=== PATIENT | female | born 1960 | race Caucasian/White ===

== ENCOUNTER 2024-01-18 17:06 | Emergency (ER) | payer MEDICARE, OTHER ==
[~2024-01-18] VITALS: Ht 162.6 cm; Wt 69.6 kg
[2024-01-18 18:19] VITALS: BP 165/72; PULSE 72; RESP 15; TEMP 98; O2SAT 95
== END 2024-01-18 18:22 | disposition home or self-care (01) ==
LOC: ER 17:07
DX: M25.562 Pain in left knee (principal); R25.2 Cramp and spasm
CPT/HCPCS: 93971; 99284

== ENCOUNTER 2025-01-26 13:37 | Outpatient (CLI) | payer BC, MEDICARE, MEDICAID ==
--- NOTE | 2025-01-26 14:58 | RADIOLOGY REPORT ---
ULTRASOUND SOFT TISSUE HEAD AND NECK CLINICAL INDICATION: HYPOTHYROIDISM, UNSPECIFIED TECHNIQUE: Multiple real time sonographic images of the thyroid were obtained. FINDINGS: The right thyroid gland measures 2 x 1 x 0.8 cm. The left thyroid gland measures approximately 2 x 1 x 1 cm. The isthmus measures -/2 cm. ACR TIRADS 9 mm TI-RADS 3 nodule right lower thyroid lobe. IMPRESSION: 1. 9 mm TI-RADS 3 nodule right lower thyroid lobe. Follow-up in 1 year [employer] TI-RADS Categories and Recommendations (2017): TR1: 0 points, Benign, No FNA TR2: 2 points, Not suspicious, No FNA TR3: 3 points, Mildly suspicious, FNA if > or = 2.5 cm, Follow if > or = 1.5 cm TR4: 4-6 points, Moderately Suspicious, FNA if > or = 1.5 cm, Follow if > or = 1.0 cm TR5: 7+ points, Highly Suspicious, FNA if > or = 1.0 cm, Follow if > or = 0.5 cm Follow-up ultrasound guidelines: TR5: yearly for 5 years, if no growth or change in TI-RADS level TR4: at 1, 2, 3 and 5 years, if no growth or change in TI-RADS level TR3: at 1, 3 and 5 years, if no growth or change in TI-RADS level If increased but below threshold for FNA, repeat in one year. Source: ACR Thyroid Imaging, Reporting and Data System (TI-RADS): White Paper of the ACR TI-RADS Committee. Laurent et al., J Am Jigna Radiol 2017;14:587-595.
== END 2025-01-26 23:59 | disposition home or self-care (01) ==
LOC: RAD 13:37
PROVIDERS: ATTEND Physician Assistant
DX: E04.1 Nontoxic single thyroid nodule (principal); E03.9 Hypothyroidism, unspecified
CPT/HCPCS: 76536

== ENCOUNTER 2025-05-05 10:10 | Outpatient (CLI) | payer BC, MEDICARE, MEDICAID ==
--- NOTE | 2025-05-05 13:08 | RADIOLOGY REPORT ---
CLINICAL INDICATION: LEFT HIP PAIN TECHNIQUE: 1 radiographic views of the pelvis and 1 view of the bilateral hips were obtained. Comparison: None FINDINGS/IMPRESSION: There is no evidence of acute fracture or dislocation. The visualized joint space is well maintained. Degenerative changes of the pubic symphysis. The alignment is anatomical. There is no radiopaque foreign body.
== END 2025-05-05 23:59 | disposition home or self-care (01) ==
LOC: RAD 10:10
PROVIDERS: ATTEND Physician Assistant
DX: M16.12 Unilateral primary osteoarthritis, left hip (principal); M25.552 Pain in left hip
CPT/HCPCS: 73521